=== PATIENT | female | born 1965 | race Caucasian/White ===

== ENCOUNTER 2017-03-05 12:39 | Emergency (ER) | payer MEDICARE, MEDICAID ==
[~2017-03-05] VITALS: Ht 157.5 cm; Wt 81.0 kg
[~2017-03-05 12:39] MED LIST: AMLO5TAB4 PO; ASA; DILAUDID; GABAPENTIN; HYDR-3933; PRAVACHOL; PROTONIX; ZANTAC; ZOFRAN
[2017-03-05 14:34] LABS: HCG SCREEN NEGATIVE
[2017-03-05 14:35] LABS: CHLORIDE 100 mEq/L (98-107); INDEX HEMOLYSI 1 (1-3); INDEX ICTERIC 1 (1-4); INDEX LIPEMIC 1 (1-3)
[2017-03-05 14:36] LABS: BASOPHILS % 0.6 % (0.0-2.0); EOSINOPHILS % 3.8 % (0.0-5.0); HEMATOCRIT. 39.9 % (36.0-48.0); HEMOGLOBIN. 13.7 g/dL (12.0-16.0); LYMPHOCYTES % 32.4 % (20.0-50.0); MEAN CORPUSCULAR HEMOGLOBIN 32.8 pg (28.0-32.0); MEAN CORPUSCULAR HGB CONC 34.3 g/dL (31.0-37.0); MEAN CORPUSCULAR VOLUME 95.7 fL (81.0-99.0); MEAN PLATELET VOLUME 8.3 fl (7.4-10.4); MONOCYTES % 6.1 % (2.0-8.0); NEUTROPHILS % 57.1 % (40.0-76.0); PLATELET 280 x1000/uL (130-400); RED BLOOD CELL COUNT 4.17 mill/uL (4.2-5.4); RED CELL DISTRIBUTION WIDTH 13.7 % (11.6-14.6); WHITE BLOOD COUNT 10.7 x1000/uL (4.5-11.0)
[2017-03-05 14:39] LABS: ANION GAP 11; CALCIUM 9.3 mg/dL (8.5-10.1); CARBON DIOXIDE 31 mEq/L (21-32); UREA NITROGEN BLOOD 13 mg/dL (7-21)
[2017-03-05 14:42] LABS: ALANINE AMINOTRANSFERASE 200 IU/L (13-61); eGFR > 60 mL/min (>60)
[2017-03-05] MEDS ORDERED: ONDANSETRON HCL 4MG/2ML VIAL IV STA (15:20)
[2017-03-05] MEDS ORDERED: SODIUM CHLORIDE 0.9% 1,000 ML IV ONE (15:20)
[2017-03-05] MEDS ORDERED: ONDANSETRON 4MG ODT PO STA (15:20)
[2017-03-05] MEDS ORDERED: MORPHINE SULFATE 4 MG/ML CPJ (NOT FOR IM USE) IV ONE (15:30)
[2017-03-05] MEDS ORDERED: KETOROLAC 30MG/ML VIAL IV ONE (18:30)
[2017-03-05] MEDS ORDERED: HYDROCODONE/ACETAMINOPHEN 10/325MG TABLET PO ONE (18:30)
[2017-03-05 18:32] VITALS: BP 140/81
== END 2017-03-05 19:15 | disposition home or self-care (01) ==
LOC: ER 12:40
DX: D21.9 Benign neoplasm of connective and other soft tissue, unspecified (principal); G43.909 Migraine, unspecified, not intractable, without status migrainosus; I10 Essential (primary) hypertension; Z98.51 Tubal ligation status; Z88.8 Allergy status to other drugs, medicaments and biological substances
CPT/HCPCS: 36415; 74176; 76830; 76856; 80053; 84703; 85025; 96361; 96374; 96375; 99285; J2270; J2405; J7030

== ENCOUNTER 2017-05-15 03:20 | Emergency (ER) | payer MEDICARE, MEDICAID ==
[~2017-05-15] VITALS: Ht 162.6 cm; Wt 68.0 kg
[2017-05-15 04:21] LABS: BASOPHILS % 0.8 % (0.0-2.0); EOSINOPHILS % 4.1 % (0.0-5.0); HEMATOCRIT. 38.1 % (36.0-48.0); HEMOGLOBIN. 13.4 g/dL (12.0-16.0); LYMPHOCYTES % 31.4 % (20.0-50.0); MEAN CORPUSCULAR HEMOGLOBIN 32.9 pg (28.0-32.0); MEAN CORPUSCULAR VOLUME 93.2 fL (81.0-99.0); MEAN PLATELET VOLUME 8.4 fl (7.4-10.4); MONOCYTES % 6.6 % (2.0-8.0); NEUTROPHILS % 57.1 % (40.0-76.0); PLATELET 240 x1000/uL (130-400); RED BLOOD CELL COUNT 4.09 mill/uL (4.2-5.4); RED CELL DISTRIBUTION WIDTH 12.7 % (11.6-14.6)
[2017-05-15 04:37] LABS: CARBON DIOXIDE 31 mEq/L (21-32); CHLORIDE 101 mEq/L (98-107); TROPONIN I 0.11 ng/mL (0.00-0.04)
[2017-05-15 06:00] VITALS: BP 147/97
== END 2017-05-15 06:05 | disposition left against medical advice (07) ==
LOC: ER 03:20
DX: R07.2 Precordial pain (principal); I10 Essential (primary) hypertension; I25.2 Old myocardial infarction; Z86.73 Personal history of transient ischemic attack (TIA), and cerebral infarction without residual deficits; Z88.8 Allergy status to other drugs, medicaments and biological substances
CPT/HCPCS: 36415; 71010; 80053; 84484; 85025; 85379; 93005; 99285

== ENCOUNTER 2017-07-31 13:13 | Emergency (ER) | payer MEDICARE, MEDICAID ==
[~2017-07-31] VITALS: Ht 170.2 cm; Wt 83.0 kg
[~2017-07-31 13:13] MED LIST changes: -HYDR-3933; +HYDR-4009
[2017-07-31] MEDS ORDERED: HYDROCODONE/ACETAMINOPHEN 5/325MG TABLET PO ONE (15:15)
[2017-07-31 15:41] VITALS: BP 168/108
[2017-07-31 15:42] LABS: BASOPHILS % 0.7 % (0.0-2.0); EOSINOPHILS % 2.5 % (0.0-5.0); HEMATOCRIT. 37.5 % (36.0-48.0); HEMOGLOBIN. 13.3 g/dL (12.0-16.0); LYMPHOCYTES % 30.1 % (20.0-50.0); MEAN CORPUSCULAR HEMOGLOBIN 33.2 pg (28.0-32.0); MEAN CORPUSCULAR VOLUME 93.7 fL (81.0-99.0); MEAN PLATELET VOLUME 8.6 fl (7.4-10.4); MONOCYTES % 4.5 % (2.0-8.0); NEUTROPHILS % 62.2 % (40.0-76.0); PLATELET 268 x1000/uL (130-400); RED CELL DISTRIBUTION WIDTH 12.6 % (11.6-14.6)
[2017-07-31 15:50] LABS: CARBON DIOXIDE 30 mEq/L (21-32); CHLORIDE 100 mEq/L (98-107)
[2017-07-31 15:56] LABS: TROPONIN I 0.11 ng/mL (0.00-0.04)
== END 2017-07-31 15:53 | disposition left against medical advice (07) ==
LOC: ER 13:22
DX: R07.9 Chest pain, unspecified (principal); R51 Headache; I10 Essential (primary) hypertension; Z86.73 Personal history of transient ischemic attack (TIA), and cerebral infarction without residual deficits; Z88.8 Allergy status to other drugs, medicaments and biological substances
CPT/HCPCS: 36415; 80048; 83880; 84484; 85025; 93005; 99285

== ENCOUNTER 2017-09-10 15:53 | Inpatient (IN) | payer MEDICARE, MEDICAID ==
[~2017-09-10] VITALS: Ht 157.5 cm; Wt 81.3 kg
[2017-09-10] MEDS ORDERED: SODIUM CHLORIDE 0.9% 500 ML IV ONE (16:08)
[2017-09-10] MEDS ORDERED: ONDANSETRON HCL 4MG/2ML VIAL IV STA (16:11)
[2017-09-10] MEDS ORDERED: MORPHINE SULFATE 4 MG/ML CPJ (NOT FOR IM USE) IV STA (16:11)
[2017-09-10] MEDS ORDERED: BACITRACIN ZINC OINT UDPKT TOP ONE (16:30)
[2017-09-10 16:47] LABS: BASOPHILS % 0.9 % (0.0-2.0); CHLORIDE 99 mEq/L (98-107); EOSINOPHILS % 4.6 % (0.0-5.0); HEMATOCRIT. 38.1 % (36.0-48.0); HEMOGLOBIN. 13.2 g/dL (12.0-16.0); LYMPHOCYTES % 32.3 % (20.0-50.0); MEAN CORPUSCULAR HEMOGLOBIN 33.3 pg (28.0-32.0); MEAN CORPUSCULAR VOLUME 95.6 fL (81.0-99.0); MEAN PLATELET VOLUME 8.8 fl (7.4-10.4); MONOCYTES % 6.1 % (2.0-8.0); NEUTROPHILS % 56.1 % (40.0-76.0); PLATELET 242 x1000/uL (130-400); RED BLOOD CELL COUNT 3.98 mill/uL (4.2-5.4); RED CELL DISTRIBUTION WIDTH 12.9 % (11.6-14.6)
[2017-09-10 16:53] LABS: CARBON DIOXIDE 32 mEq/L (21-32); ETHANOL BLOOD < 10 mg/dL
[2017-09-10 16:57] LABS: HCG SCREEN NEGATIVE
[2017-09-10 17:43] LABS: CLARITY URINE CLEAR (CLEAR); COLOR URINE YELLOW (YELLOW); GLUCOSE URINE TRACE (NEGATIVE); KETONES URINE NEGATIVE (NEGATIVE); LEUKOCYTE ESTERASE URINE NEGATIVE (NEGATIVE); NITRITE URINE NEGATIVE (NEGATIVE); OCCULT BLOOD URINE NEGATIVE (NEGATIVE); PH URINE 5.5 (4.5-8.0); PROTEIN URINE TRACE (NEGATIVE); SPECIFIC GRAVITY URINE 1.016 (1.005-1.030); UROBILINOGEN URINE 0.2 E.U./dL (0.2-1.0)
[2017-09-10 17:57] LABS: *AMPHETAMINES SCREEN URINE NEGATIVE (NEGATIVE); *BARBITURATES SCREEN URINE NEGATIVE (NEGATIVE); *BENZODIAZEPINES SCREEN URINE NEGATIVE (NEGATIVE); *COCAINE SCREEN URINE NEGATIVE (NEGATIVE); CANNABINOID URINE SCREEN NEGATIVE (NEGATIVE); METHADONE URINE SCREEN NEGATIVE (NEGATIVE); OPIATES URINE SCREEN PRESUMTIVE POSITIVE (NEGATIVE); PHENCYCLIDINE URINE SCREEN NEGATIVE (NEGATIVE)
[2017-09-10] MEDS ORDERED: ASPIRIN 325MG EC TABLET PO NR (19:15)
[2017-09-10] MEDS ORDERED: DIPHENHYDRAMINE 50MG/ML VIAL IV ONE (21:00)
[2017-09-10] MEDS ORDERED: PROCHLORPERAZINE 10MG/2ML VIAL IV ONE (21:00)
[2017-09-10 22:52] VITALS: BP 161/99
[2017-09-10 23:00] VITALS: BP 161/99
[2017-09-10] MEDS ORDERED: IPRATROPIUM/ALBUTEROL 0.5-3(2.5)MG/3ML NEB INH PRN (23:15)
[2017-09-10] MEDS ORDERED: CLONIDINE 0.1MG TABLET PO PRN (23:15)
[2017-09-10] MEDS ORDERED: ONDANSETRON HCL 4MG/2ML VIAL IV PRN (23:15)
[2017-09-10] MEDS ORDERED: MAGNESIUM/ALUMINUM HYDROXIDE/SIMETHICONE 30ML UDC PO PRN (23:15)
[2017-09-10] MEDS ORDERED: GUAIFENESIN 200MG/10ML SUGAR FREE UDC PO PRN (23:15)
[2017-09-10] MEDS ORDERED: HYDROCODONE/ACETAMINOPHEN 5/325MG TABLET PO PRN (23:15)
[2017-09-10] MEDS ORDERED: DOCUSATE SODIUM 100MG CAPSULE PO PRN (23:15)
[2017-09-10] MEDS ORDERED: FURO-152 PO (23:29)
[2017-09-10] MEDS ORDERED: IRBE300T42 PO (23:29)
[2017-09-10] MEDS ORDERED: CLON0.2T PO (23:29)
[2017-09-10] MEDS ORDERED: HYDR2TAB4 PO (23:32)
[2017-09-10] MEDS: HYDROMORPHONE HCL/PF 2MG/ML CPJ IV PRN (23:42)
[2017-09-11] MEDS ORDERED: DEXTROSE 50% WATER 50ML SYRINGE IV PRN
[2017-09-11 00:12] VITALS: BP 179/85
[2017-09-11 04:00] VITALS: BP 139/85
[2017-09-11 06:45] LABS: BASOPHILS % 0.5 % (0.0-2.0); HEMATOCRIT. 36.8 % (36.0-48.0); HEMOGLOBIN. 12.9 g/dL (12.0-16.0); LYMPHOCYTES % 32.6 % (20.0-50.0); MEAN CORPUSCULAR HEMOGLOBIN 33.6 pg (28.0-32.0); MEAN CORPUSCULAR VOLUME 95.8 fL (81.0-99.0); MEAN PLATELET VOLUME 9.1 fl (7.4-10.4); MONOCYTES % 6.7 % (2.0-8.0); NEUTROPHILS % 56.2 % (40.0-76.0); PLATELET 208 x1000/uL (130-400); RED BLOOD CELL COUNT 3.84 mill/uL (4.2-5.4); RED CELL DISTRIBUTION WIDTH 12.7 % (11.6-14.6)
[2017-09-11 07:59] LABS: CARBON DIOXIDE 28 mEq/L (21-32); CHLORIDE 103 mEq/L (98-107); HDL CHOLESTEROL 26 mg/dL (40-59); LDL CHOLESTEROL 120 mg/dL (5-100)
[2017-09-11 08:00] VITALS: BP 140/73
[2017-09-11] MEDS: INSULIN LISPRO 100 UNITS/ML SUBCUT SCH ×2 (08:10→13:10)
[2017-09-11] MEDS: BLOOD SUGAR DIAGNOSTIC STRIP TEST SCH ×2 (08:37→12:40)
[2017-09-11] MEDS: AMLODIPINE 10MG TABLET PO SCH ×2 (08:39→08:52)
[2017-09-11] MEDS: HYDROMORPHONE HCL/PF 2MG/ML CPJ IV PRN ×2 (08:48→14:07)
[2017-09-11] MEDS ORDERED: ENOXAPARIN 40MG/0.4ML SYR SUBCUT SCH (09:00)
[2017-09-11] MEDS ORDERED: ASPIRIN 81MG EC TABLET PO SCH (09:00)
[2017-09-11] MEDS ORDERED: FUROSEMIDE 20MG TABLET PO SCH (11:45)
[2017-09-11] MEDS ORDERED: CLONIDINE 0.2MG TABLET PO SCH (11:45)
[2017-09-11 12:00] VITALS: BP 114/63
[2017-09-11] MEDS ORDERED: LOSARTAN POTASSIUM 100 MG TABLET PO SCH (13:15)
[2017-09-11 16:00] VITALS: BP 141/81
[2017-09-11 16:26] VITALS: BP 148/82
[2017-09-11] MEDS ORDERED: ATORVASTATIN CALCIUM 40MG TABLET PO SCH (21:00)
== END 2017-09-11 17:05 | disposition home or self-care (01) | DRG 92 ==
LOC: ER 16:11 → 7WST 20:53 → EDBEDREQTM 20:53 → EDBEDREQ 20:53 → ENRESERV 21:08
PROVIDERS: ADMIT Hospitalist; ATTEND Hospitalist
DX: R20.0 Anesthesia of skin (principal); E87.1 Hypo-osmolality and hyponatremia; E44.0 Moderate protein-calorie malnutrition; E11.65 Type 2 diabetes mellitus with hyperglycemia; G43.909 Migraine, unspecified, not intractable, without status migrainosus; I10 Essential (primary) hypertension; E78.00 Pure hypercholesterolemia, unspecified; E78.5 Hyperlipidemia, unspecified; I25.10 Atherosclerotic heart disease of native coronary artery without angina pectoris; Z86.73 Personal history of transient ischemic attack (TIA), and cerebral infarction without residual deficits; Z88.8 Allergy status to other drugs, medicaments and biological substances; Z79.899 Other long term (current) drug therapy; I25.2 Old myocardial infarction
CPT/HCPCS: 36415; 70450; 70551; 80053; 80061; 80305; 80307; 80329; 81001; 82962; 83036; 84443; 84703; 85025; 93880; 96361; 96374; 96375; 99291; G0482; J0780; J1170; J1650; J1815; J2270; J2405; J7030

== ENCOUNTER 2021-03-07 20:27 | Emergency (ER) | payer MEDICARE, MEDICAID ==
[~2021-03-07] VITALS: Ht 152.4 cm; Wt 64.0 kg
[~2021-03-07 20:27] MED LIST changes: -AMLO5TAB4 PO; -ASA; +CLON0.2T PO; -DILAUDID; +FURO-152 PO; -GABAPENTIN; +HYDR2TAB4 PO; +IRBE300T42 PO; -PRAVACHOL; -PROTONIX; -ZANTAC; -ZOFRAN
[2021-03-07] MEDS ORDERED: ACETAMINOPHEN 325MG TABLET PO STA (20:56)
[2021-03-07] MEDS ORDERED: ASPIRIN 81MG TABLET PO ONE (21:00)
[2021-03-07] MEDS ORDERED: NITROGLYCERIN 0.4MG TABLET SL SL PRN (21:00)
[2021-03-07 21:48] LABS: BASOPHILS % 0.6 % (0.0-2.0); EOSINOPHILS % 3.2 % (0.0-5.0); HEMATOCRIT. 38.5 % (36.0-48.0); HEMOGLOBIN. 13.8 g/dL (12.0-16.0); LYMPHOCYTES % 24.4 % (20.0-50.0); MEAN CORPUSCULAR HEMOGLOBIN 33.8 pg (28.0-32.0); MEAN CORPUSCULAR VOLUME 94.5 fL (81.0-99.0); MEAN PLATELET VOLUME 8.8 fl (7.4-10.4); MONOCYTES % 4.7 % (2.0-8.0); NEUTROPHILS % 67.1 % (40.0-76.0); PLATELET 265 x1000/uL (130-400); RED BLOOD CELL COUNT 4.08 mill/uL (4.2-5.4); RED CELL DISTRIBUTION WIDTH 12.4 % (11.6-14.6)
[2021-03-07 21:56] LABS: CHLORIDE 101 mEq/L (98-107)
[2021-03-07 21:58] LABS: PROTHROMBIN TIME 10.3 sec (9.6-11.0)
[2021-03-08] MEDS ORDERED: LABETALOL 5MG/ML SYR 20 MG/4 ML SYRINGE IV SCH (01:15)
[2021-03-08 03:00] VITALS: BP 137/79
== END 2021-03-08 03:04 | disposition left against medical advice (07) ==
LOC: ER 20:27 → CANBEDREQ 03-08 06:15
DX: R07.89 Other chest pain (principal); R77.8 Other specified abnormalities of plasma proteins; I25.2 Old myocardial infarction; I10 Essential (primary) hypertension; Z88.8 Allergy status to other drugs, medicaments and biological substances; Z86.73 Personal history of transient ischemic attack (TIA), and cerebral infarction without residual deficits
CPT/HCPCS: 36415; 71045; 80053; 83880; 84484; 85025; 93005; 99285; J3490